=== PATIENT | female | born 2000 | race Hispanic/Latino ===

== ENCOUNTER 2018-01-04 21:08 | Emergency (ER) | payer OTHER, SELFPAY ==
[2018-01-04] MEDS ORDERED: Diazepam 5 MG TAB ONE (22:29)
[2018-01-04] MEDS ORDERED: Ketorolac Tromethamine 60 MG/2 ML VIAL ONE (22:29)
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
[2018-01-04] MEDS ORDERED: Ondansetron ODT 4 MG TAB ONE (23:10)
== END 2018-01-04 23:03 | disposition home or self-care (01) ==
LOC: ERS 21:08
DX: S16.1XXA Strain of muscle, fascia and tendon at neck level, initial encounter (principal); V49.9XXA Car occupant (driver) (passenger) injured in unspecified traffic accident, initial encounter
CPT/HCPCS: 72125; 96372; J1885; Q0162